=== PATIENT | female | born 1985 | race African-American/Black ===

== ENCOUNTER 2020-02-21 14:15 | Inpatient (IN) | payer OTHER ==
[2020-02-21 15:48] VITALS: BMI 37.5
[2020-02-21] MEDS ORDERED: AMPICILLIN - 2 GM in SODIUM CHLORIDE 100 ML IVPB ONE (16:00)
[2020-02-21 16:03] LABS: BASO % 0.3 % (0-2.0); EOS % 0.5 % (0-4.5); HEMATOCRIT 32.1 % (32.4-45.2); HEMOGLOBIN 10.3 GM/dL (10.7-15.3); LYMPH % 30.6 % (8-40); MCH 26.1 pg (25.7-33.7); MEAN CELL VOLUME 81.3 fl (80-96); MEAN PLT VOLUME 9.5 fl (7.5-11.1); MONO % 5.8 % (3.8-10.2); NEUT % 62.8 % (42.8-82.8); PLATELET COUNT 268 K/MM3 (134-434); RBC 3.95 M/mm3 (3.60-5.2); RDW 16.4 % (11.6-15.6); WHITE BLOOD COUNT 10.7 K/mm3 (4.0-10.0)
[2020-02-21] MEDS ORDERED: AMPICILLIN SODIUM 2 GM VIAL ONE (16:16)
[2020-02-21 16:30] LABS: BLOOD UREA NITROGEN 7.5 mg/dL (7-18); CALCIUM 8.9 mg/dL (8.5-10.1); CREATININE 0.6 mg/dL (0.55-1.3); POTASSIUM 4.6 mmol/L (3.5-5.1)
[2020-02-21] MEDS ORDERED: PCA PUMP NR ONE (16:39)
[2020-02-21] MEDS ORDERED: FENTANYL/BUPIVACAINE/NS/PF - PCEA - 50 ML DISP.SYRIN EP ONE ×3 (16:40→23:10)
[2020-02-21] MEDS ORDERED: BUPIVACAINE HCL/PF 0.25% (2.5MG/ML) 10 ML VIAL ONE ×2 (16:45→22:52)
[2020-02-21 16:59] LABS: INR 0.92 (0.83-1.09); PROTHROMBIN TIME (PATIENT) 10.9 SEC (9.7-13.0)
[2020-02-21] MEDS ORDERED: NALOXONE HCL 0.4 MG/ML VIAL IVPUSH PRN (17:09)
[2020-02-21] MEDS ORDERED: FENTANYL/BUPIVACAINE/NS/PF - PCEA - 50 ML DISP.SYRIN EP SCH (17:15)
[2020-02-21] MEDS ORDERED: ELECTROLYTE-148 SOLN 1,000 ML IV SCH (18:15)
--- NOTE | 2020-02-21 18:56 | PD.OB.PROG ---
Past Medical History - Primary Care Physician PCP:: Dario Gomez Documenting Provider Type: Laborist - Admission Chief Complaint: in labor History of Present Illness: ctx. Given epidural - Nursing Documentation Maternal Triage Index: Maternal Triage Index ( Priority 4, Non-urgent MFTI) Hemorrhage Risk Assessment: Risk Level Low Risk High Level Risk Factors for None Hemorrhage Medium Level Risk Factors for None of the above Hemorrhage Low Level Risk Factors for No previous uterine incis,Owusu Pregnaancy, Hemorrhage Four (4) or less previous,No known bleeding,No history of PPH Nursing Documentation Reviewed: Yes - Past Medical History CHISEL TRIMMER: Denies/None Cardio/Vascular: Denies/None Pulmonary: Denies/None Gastrointestinal: Denies/None Hepatobiliary: Denies/None Renal/: Denies/None ...: 7 ...Para: 1 ...Term: 1 ...: 0 ...Spon : 5 ...Induced : 0 ...Living Children: 1 ...Multiple Gestation: 0 ...LMP: 05/22/19 ... Weeks Gestation by Dates: 39.3 ...EDC by Dates: 02/25/20 Heme/Onc: Denies/None Infectious Disease: Denies/None Psych: Denies/None Musculoskeletal: Denies/None Rheumatology: Denies/None ENT: Denies/None Endocrine: Denies/None Dermatology: Denies/None - Past Surgical History Past Surgical History: Yes: None - Smoking History Smoking history: Never smoked Have you smoked in the past 12 months: No - Alcohol/Substance Use Hx Alcohol Use: No Review of Systems - Review of Systems Constitutional: reports: No Symptoms Eyes: reports: No Symptoms HENT: reports: No Symptoms Neck: reports: No Symptoms Cardiovascular: reports: No Symptoms Respiratory: reports: No Symptoms Gastrointestinal: reports: No Symptoms Genitourinary: reports: No Symptoms Breasts: reports: No Symptoms Reported Musculoskeletal: reports: No Symptoms Integumentary: reports: No Symptoms Neurological: reports: No Symptoms Endocrine: reports: No Symptoms Hematology/Lymphatic: reports: No Symptoms Psychiatric: reports: No Symptoms Physical Exam - Obstetrical Vital Signs: Vital Signs Temperature 98.4 F 02/21/20 18:00 Pulse Rate 103 H 02/21/20 18:00 Respiratory Rate 18 02/21/20 17:30 Blood Pressure 84/48 L 02/21/20 17:30 O2 Sat by Pulse Oximetry (%) 100 02/21/20 18:00 Constitutional: Yes: Well Nourished, No Distress, Calm Eyes: Yes: WNL, Conjunctiva Clear, EOM Intact HENT: Yes: WNL, Atraumatic, Normocephalic Neck: Yes: WNL, Supple, Trachea Midline Cardiovascular: Yes: WNL, Regular Rate and Rhythm Lungs: Clear to auscultation Breast(s): Yes: WNL - Abdominal Exam/OB Fundal Height: 38 Number of Fetuses: Single Presentation: Vertex Contractions: Yes Regularity: Regular Intensity: Moderate Monitor Mode: External Heart Rate (range): 135 Heart Rate Location: [facility] Category: I Accelerations: Uniform Decelerations: None - Vaginal Exam/OB Vaginal Exam Deferred: No Speculum Exam: No Amniotic Membrane Status: Bulging Nitrazine Test: Negative Presentation: Vertex/Position Station: -2 - Physical Exam Musculoskeletal: Yes: WNL, Muscle Weakness (AROM - clear.) - Labs Lab Results: CBC, BMP 02/21/20 15:20 02/21/20 15:20 Problem List - Problems (1) Active labor Code(s): [id number] - Assessment/Plan Active labor. AROM - clear. Expecting vaginal delivery.
--- NOTE | 2020-02-21 19:08 | HP ---
Past Medical History - Admission Chief Complaint: active labor History Source: Patient Limitations to Obtaining History: No Limitations - Past Medical History PULVERIZER: No: Alzheimer's, CVA, Dementia, Migraine, Multiple Sclerosis, Peripheral Neuropathy, Parkinson's, Seizure, Syncope, TIA, Vertigo, Other Cardiovascular: No: AFIB, Aneurysm, Aortic Insufficiency, Aortic Stenosis, CAD, CHF, Deep Vein Thrombosis, HTN, Hyperlipdemia, MS, Mitral Insufficiency, Mitral Stenosis, Murmur, Pulmonary Hypertension, Other Pulmonary: No: Asthma, Bronchitis, Cancer, COPD, O2 Dependent, Pneumonia, Previously Intubated, Pulmonary Embolus, Pulmonary Fibrosis, Sleep Apnea, Other Gastrointestinal: No: Ascites, Cancer, Constipation, Crohn's Disease, Diverticulitis, Diverticulosis, Esophageal Varices, Gastritis, GERD, GI Bleed, Hemorrhoids, Hiatal Hernia, Inflamatory Bowel Disease, Irritable Bowel Disease, Pancreatitis, Peptic Ulcer Disease, Ulcerative Colitis, Other Hepatobiliary: No: Cirrhosis, Cholelithiasis, Cholecystitis, Choledocholithiasi s, Hepatitis A, Hepatitis B, Hepatitis C, Other Renal/: No: Renal Failure, Renal Inusuff, BPH, Cancer, Hematuria, Hemodialysis, Neurogenic Bladder, Renal Calculi, UTI, Other Reproductive: No: Ectopic , Endometriosis, Fibroids, PID, Polycystic Ovary Syndrome, Postmenopausal, Other ...: 7 ...Para: 1 ...Term: 1 ...: 0 ...Spon : 5 ...Induced : 0 ...Living Children: 1 ...Multiple Gestation: 0 ...LMP: 05/22/19 ... Weeks Gestation by Dates: 39.3 ...EDC by Dates: 02/25/20 Heme/Onc: No: Anemia, B12 Deficiency, Bleeding Disorder, Cancer, Current Chemotherapy, Current Radiation Therapy, Hemochromatosis, Hypercoaguable State, Myeloproliferative Synd, Sickle Cell Disease, Sickle Cell Trait, Thrombocytopenia, Other Infectious Disease: No: AIDS, C-Diff, Herpes Zoster, HIV, MRSA, STD's, Tu berculosis, VREF, Other Psych: No: Addictions, Anxiety, Bipolar, Depression, Panic, Psychosis, Schizophrenia, Other Musculoskeletal: No: Bursitis, Chronic low back pain, Hemiparesis, Hemiplegia, Osteoarthritis, Paraplegia, Other Rheumatology: No: Fibromyalgia, Gout, Lupus, Rheumatoid Arthritis, Sarcoidosis, Vasculitis, Other ENT: No: Allergic Rhinitis, Sinusitis, Other Endocrine: No: Peter's Disease, [place]'s Disease, Diabetes Insipidus, Diabetes Mellitus, Hyperparathyroidism, Hyperthyroidism, Hypothyroidism, Osteopenia, SIADH, Other Dermatology: No: Basal Cell, Cellulitis, Eczema, Melanoma, Psoriasis, Squamous Cell, Other - Past Surgical History Past Surgical History: Yes: None Hx Myomectomy: No Hx Transabdominal Cerclage: No - Advance Directives Advance Directives: Yes: Living Will - Smoking History Smoking history: Never smoked Have you smoked in the past 12 months: No - Alcohol/Substance Use Hx Alcohol Use: No History of Substance Use: reports: None - Social History Usual Living Arrangement: Yes: With Significant Other Do you think of yourself as: Straight/Heterosexual ADL: Independent History of Recent Travel: No Home Medications - Allergies Allergies/Adverse Reactions: Allergies Allergy/AdvReac Type Severity Reaction Status Date / Time No Known Allergies Allergy Verified 02/21/20 14:45 - Home Medications Home Medications: Ambulatory Orders Pnv No.95/Ferrous Fum/Folic AC [ Formula] 1 each PO DAILY 02/21/20 Family Medical History Family History: Denies Review of Systems - Review of Systems Constitutional: reports: No Symptoms Eyes: reports: No Symptoms HENT: reports: No Symptoms Neck: reports: No Symptoms Cardiovascular: reports: No Symptoms Respiratory: reports: No Symptoms Gastrointestinal: reports: No Symptoms Genitourinary: reports: No Symptoms Breasts: reports: No Symptoms Reported Musculoskeletal: reports: No Symptoms Integumentary: reports: No Symptoms Neurological: reports: No Symptoms Endocrine: reports: No Symptoms Hematology/Lymphatic: reports: No Symptoms Psychiatric: reports: No Symptoms Physical Exam - Maternity Vital Signs: Vital Signs Temperature 98.4 F 02/21/20 18:00 Pulse Rate 103 H 02/21/20 18:00 Respiratory Rate 18 02/21/20 17:30 Blood Pressure 84/48 L 02/21/20 17:30 O2 Sat by Pulse Oximetry (%) 100 02/21/20 18:00 Constitutional: Yes: Well Nourished, No Distress, Calm Eyes: Yes: WNL, Conjunctiva Clear, EOM Intact HENT: Yes: WNL, Atraumatic, Normocephalic Neck: Yes: WNL, Supple, Trachea Midline Cardiovascular: Yes: WNL, Regular Rate and Rhythm Lungs: Clear to auscultation Breast(s): Yes: WNL - Abdominal Exam/OB Fundal Height: 40 Number of Fetuses: Single Presentation: Vertex Contractions: Yes Regularity: Irregular Intensity: Mod/Strong Monitor Mode: External Heart Rate Location: [facility] Category: I Accelerations: Uniform Decelerations: None - Vaginal Exam/OB Vaginal Bleeding: No Speculum Exam: No Dilatation (cm): 4 Effacement (%): 50 Amniotic Membrane Status: Intact Presentation: Vertex/Position Station: -2 - Physical Exam Musculoskeletal: Yes: WNL Extremities: Yes: WNL Edema: Yes Edema: LUE: 1+, RUE: 1+, LLE: 1+, RLE: 1+ Integumentary: Yes: WNL Deep Tendon Reflex Grade: Normal +2 ...Motor Strength: WNL Psychiatric: Yes: WNL, Alert, Oriented - Labs Lab Results: CBC, BMP 02/21/20 15:20 02/21/20 15:20 Hemorrhage Risk Assessment - Risk Factors Medium Risk Factors: Yes: None High Risk Factors: Yes: None Risk Score: 1 Risk Level: Medium Risk Assessment/Plan for , arom later and pitocin
--- NOTE | 2020-02-21 19:11 | PN ---
Progress Note (short form) - Note Progress Note: 7 pm, 5 cm, -2, 70, nst reactive, positive accell. for pitocin
[2020-02-21] MEDS ORDERED: OXYTOCIN 30 UNITS in 0.9% NS 30 UNIT/500 ML INFUS.BAG IVPB SCH (19:15)
[2020-02-21] MEDS ORDERED: OXYTOCIN 30 UNITS in 0.9% NS 30 UNIT/500 ML INFUS.BAG IVPB ONE (19:22)
[2020-02-21] MEDS ORDERED: AMPICILLIN SODIUM 1 GM VIAL ONE (20:15)
[2020-02-21] MEDS ORDERED: SODIUM CHLORIDE 100 ML IVPB ONE (20:15)
[2020-02-21] MEDS: AMPICILLIN - 1 GM in SODIUM CHLORIDE 100 ML IVPB SCH (20:17)
[2020-02-21] MEDS ORDERED: morphine SULFATE/PF 0.5 MG/ML (2cc Syringe - QUVA) ONE ×2 (23:57)
[2020-02-22] MEDS ORDERED: oxyCODONE HCL 5 MG TABLET PO PRN ×2 (01:24)
[2020-02-22] MEDS ORDERED: METHYLERGONOVINE MALEATE 0.2 MG/1 ML AMP IM PRN (01:24)
[2020-02-22] MEDS ORDERED: IBUPROFEN 800 MG/8 ML IJ IVPB PRN (01:24)
[2020-02-22] MEDS ORDERED: SENNOSIDES/DOCUSATE COMBO (SENNA PLUS) TABLET (UD) PO PRN (01:24)
--- NOTE | 2020-02-22 01:29 | PN ---
Progress Note (short form) - Note Progress Note: 11 pm, recurrrent late deccel, cervix still 5 to 6 cm, -2, thick 70 %, for c s , cat 2 nst, and f t progress,
--- NOTE | 2020-02-22 01:31 | OP ---
Operative Note - Note: Operative Date: 02/22/20 Pre-Operative Diagnosis: cat 2 nst, f t progress, Operation: priamry lt c s Findings: can x 1 , op Post-Operative Diagnosis: Same as Pre-op Surgeon: Dario Gomez Sales Support Rep: Robin Wiseman Anesthesiologist/BOARD SETTER: Emilio Peralta Anesthesia: Epidural Estimated Blood Loss (mls): 350 (endometriosis lesions, ) Operative Report Dictated: Yes
[2020-02-22] MEDS: AMPICILLIN - 1 GM in SODIUM CHLORIDE 100 ML IVPB SCH ×3 (02:25→10:41)
[2020-02-22] MEDS ORDERED: SODIUM CHLORIDE 100 ML IVPB ONE (03:30)
[2020-02-22] MEDS ORDERED: AMPICILLIN SODIUM 1 GM VIAL ONE (03:30)
[2020-02-22] MEDS: OXYTOCIN 20 UNITS in 0.9% NS 20 UNIT/1,000 ML INFUS.BAG IV SCH ×2 (04:03→15:03)
[2020-02-22] MEDS: PRENATAL VITAMINS W/ FOLIC ACID TABLET (FP) PO SCH (10:35)
[2020-02-22] MEDS: SIMETHICONE 80 MG TAB.CHEW (FP) PO PRN ×2 (10:38→15:04)
[2020-02-23] MEDS: ACETAMINOPHEN 325 MG TABLET (FP) PO PRN ×3 (00:54→15:57)
[2020-02-23] MEDS: IBUPROFEN 600 MG TABLET (FP) PO PRN ×3 (00:54→15:57)
[2020-02-23] MEDS: SIMETHICONE 80 MG TAB.CHEW (FP) PO PRN ×3 (00:55→15:57)
[2020-02-23] MEDS ORDERED: BISACODYL 10 MG SUPP.RECT RC PRN (01:25)
[2020-02-23] MEDS: OXYTOCIN 20 UNITS in 0.9% NS 20 UNIT/1,000 ML INFUS.BAG IV SCH (08:35)
[2020-02-23 09:13] LABS: BASO % 0.1 % (0-2.0); EOS % 0.2 % (0-4.5); HEMATOCRIT 30.6 % (32.4-45.2); HEMOGLOBIN 9.7 GM/dL (10.7-15.3); LYMPH % 21.9 % (8-40); MCH 25.9 pg (25.7-33.7); MCHC 31.8 g/dl (32.0-36.0); MEAN CELL VOLUME 81.4 fl (80-96); MEAN PLT VOLUME 9.6 fl (7.5-11.1); MONO % 6.8 % (3.8-10.2); PLATELET COUNT 251 K/MM3 (134-434); RBC 3.76 M/mm3 (3.60-5.2); RDW 17.1 % (11.6-15.6); WHITE BLOOD COUNT 14.5 K/mm3 (4.0-10.0)
--- NOTE | 2020-02-23 10:17 | PN ---
Progress Note, Physician Chief Complaint: s/p c section under epidural anesthesia post op day one History of Present Illness: duramorph for post op pain control - Current Medication List Current Medications: Active Medications Acetaminophen (Tylenol -) 650 mg PO Q4H PRN PRN Reason: FEVER Last Admin: 02/23/20 08:44 Dose: 650 mg Documented by: Bisacodyl (Dulcolax Suppository -) 10 mg RC PRN PRN PRN Reason: CONSTIPATION Fentanyl/Bupivacaine/Sodium Chlor (Bupivicaine 0.125%/Fentanyl 2mcg/Ml Pcea) 50 ml EP ASDIR PRABHA; Protocol Last Admin: 02/21/20 17:00 Dose: 50 ml Documented by: Parenteral Electrolytes (Plasma-Lyte 148 -) 1,000 mls @ 125 mls/hr IV ASDIR PRABHA Last Admin: 02/21/20 15:30 Dose: 125 mls/hr Documented by: Oxytocin/Sodium Chloride (Normal Saline+30 Units Oxytocin) 30 unit in 500 mls @ 1 mls/hr IVPB TITR [facility]; Protocol Last Titration: 02/21/20 22:10 Dose: 0.3 unit/hr, 5 mls/hr Documented by: Oxytocin/Sodium Chloride (Normal Saline+20 Units Oxytocin -) 20 unit in 1,000 mls @ 125 mls/hr IV ASDIR PRABHA Last Admin: 02/23/20 08:35 Dose: Not Given Documented by: Ibuprofen (Motrin -) 600 mg PO Q4H PRN PRN Reason: PAIN LEVEL 1 - 3 Last Admin: 02/23/20 08:44 Dose: 600 mg Documented by: Ibuprofen (Caldolor Injection -) 800 mg IVPB Q8H PRN PRN Reason: PAIN LEVEL 6-10 Last Admin: 02/22/20 15:03 Dose: 800 mg Documented by: Methylergonovine Maleate (Methergine Injection -) 0.2 mg IM Q4H PRN PRN Reason: Excessive Bleeding (L&D) Naloxone HCl (Narcan -) 0.4 mg IVPUSH PRN PRN PRN Reason: Sedation Oxycodone HCl (Roxicodone -) 5 mg PO Q4H PRN PRN Reason: PAIN LEVEL 4 - 6 Oxycodone HCl (Roxicodone -) 10 mg PO Q4H PRN PRN Reason: PAIN LEVEL 7 - 10 Multivit/Folic Acid/Iron ( Vitamins (Sjr) -) 1 tab PO DAILY PRABHA Last Admin: 02/22/20 10:35 Dose: Not Given Documented by: Senna/Docusate Sodium (Pericolace -) 2 tablet PO HS PRN PRN Reason: CONSTIPATION Last Admin: 02/23/20 00:55 Dose: 2 tablet Documented by: Simethicone (Mylicon -) 80 mg PO Q4H PRN PRN Reason: GAS Last Admin: 02/23/20 08:44 Dose: 80 mg Documented by: - Objective Vital Signs: Vital Signs Temperature 98.4 F 02/23/20 02:00 Pulse Rate 86 02/23/20 02:00 Respiratory Rate 20 02/23/20 02:00 Blood Pressure 121/76 02/23/20 02:00 O2 Sat by Pulse Oximetry (%) 98 02/22/20 14:00 Constitutional: Yes: Well Nourished Cardiovascular: Yes: WNL Respiratory: Yes: WNL Gastrointestinal: Yes: WNL Labs: CBC, BMP 02/23/20 07:58 02/21/20 15:20 INR, PTT INR 0.92 (0.83-1.09) 02/21/20 15:20 Assessment/Plan No adverse effect from anesthetic, dept of anesthesiology will sign off care at this time
[2020-02-23] MEDS: PRENATAL VITAMINS W/ FOLIC ACID TABLET (FP) PO SCH (10:22)
--- NOTE | 2020-02-23 14:37 | PN ---
Post Progress Note Post Day: 1 Type of Delivery: Primary C/S Vital Signs: Vital Signs Temperature 98.2 F 02/23/20 10:00 Pulse Rate 88 02/23/20 10:00 Respiratory Rate 18 02/23/20 10:00 Blood Pressure 128/86 02/23/20 10:00 O2 Sat by Pulse Oximetry (%) 98 02/22/20 14:00 Breast Exam: Yes: Soft Uterus: Yes: Fundus Firm, Fundus below umbilicus Incision: Yes: Dressing dry and intact, Sutures intact Abdomen/GI: Yes: Abdomen soft, Passing flatus, Tolerating PO Lochia: Yes: Serosa Lochia, amount: Small Extremities: Yes: Calves non-tender Perineum: Yes: Intact Activity: Ambulating (dc pt home tomorrow ) - Labs Labs: CBC WBC 14.5 K/mm3 (4.0-10.0) H 02/23/20 07:58 RBC 3.76 M/mm3 (3.60-5.2) 02/23/20 07:58 Hgb 9.7 GM/dL (10.7-15.3) L 02/23/20 07:58 Hct 30.6 % (32.4-45.2) L 02/23/20 07:58 MCV 81.4 fl (80-96) 02/23/20 07:58 MCH 25.9 pg (25.7-33.7) 02/23/20 07:58 MCHC 31.8 g/dl (32.0-36.0) L 02/23/20 07:58 RDW 17.1 % (11.6-15.6) H 02/23/20 07:58 Plt Count 251 K/MM3 (134-434) 02/23/20 07:58 MPV 9.6 fl (7.5-11.1) 02/23/20 07:58 Absolute Neuts (auto) 10.3 K/mm3 (1.5-8.0) H 02/23/20 07:58 Neutrophils % 71.0 % (42.8-82.8) 02/23/20 07:58 Lymphocytes % 21.9 % (8-40) D 02/23/20 07:58 Monocytes % 6.8 % (3.8-10.2) 02/23/20 07:58 Eosinophils % 0.2 % (0-4.5) 02/23/20 07:58 Basophils % 0.1 % (0-2.0) 02/23/20 07:58 Nucleated RBC % 0 % (0-0) 02/23/20 07:58
--- NOTE | 2020-02-23 14:39 | DS ---
Physical Exam-CURRICULUM COUNSELOR Vital Signs: Vital Signs Temperature 98.2 F 02/23/20 10:00 Pulse Rate 88 02/23/20 10:00 Respiratory Rate 18 02/23/20 10:00 Blood Pressure 128/86 02/23/20 10:00 O2 Sat by Pulse Oximetry (%) 98 02/22/20 14:00 Constitutional: Yes: Well Nourished, No Distress, Calm Eyes: Yes: WNL, Conjunctiva Clear, EOM Intact HENT: Yes: WNL, Atraumatic, Normocephalic Neck: Yes: WNL, Supple, Trachea Midline Cardiovascular: Yes: WNL, Regular Rate and Rhythm Respiratory: Yes: WNL, Regular, CTA Bilaterally Gastrointestinal: Yes: WNL, Normal Bowel Sounds, Soft ...Rectal Exam: Yes: WNL Renal/: Yes: WNL Pelvis: Yes: WNL External Genitalia: Yes: Normal Breast(s): Yes: WNL Musculoskeletal: Yes: WNL Extremities: Yes: WNL Integumentary: Yes: WNL Neurological: Yes: WNL, Alert, Oriented ...Motor Strength: WNL Psychiatric: Yes: WNL, Alert, Oriented Labs: CBC, BMP 02/23/20 07:58 02/21/20 15:20 Delivery - Delivery Section: Primary Type of Anesthesia: Epidural Episiotomy/Laceration: None EBL (cc): 350 Delivery, Single - Stages of Labor Date 1st Stage Initiatied: 02/21/20 Time 1st Stage Initiated: 10:00 Date of Delivery: 02/22/20 Time of Delivery: 00:23 Time Placenta Delivered: 00:24 - Condition of Gender Studies Professor/Associate Java Developer Present: Yes Gender: Female Weight: 3.572 kg Total Hours ROM (Hrs/Mins): 7/30 - 1 Minute Total Score: 5 5 Minutes Total Score: 9 - [place] Feeding Plan Initial Plan: Elected not to breastfeed exclusively throughout hospitalization Discharge Summary Problems reviewed: Yes Reason For Visit: LABOR ADMISSION Current Active Problems Active labor (Acute) Procedures: Principal: primary lt c s Other Procedures: none Hospital Course: uneventful Condition: Good - Instructions Diet, Activity, Other Instructions: Physical activity Resume your normal everyday activity as tolerated no heavy lifting or exercise until seen by your surgeon. You may walk unlimited bijal of and climb stairs. You may resume driving the car when you feel safe and comfortable behind the wheel. No sexual activity as instructed. Wound care If you have a bandage, leave it on, and keep dry for 48-72 hours. After that time discard the outer bandage. If they are tapes on the skin under the out of bandage leave them in place. They will peel off in the next 7 to 10 days. Do Not Peel them off. You may shower the day after surgery. If there are tapes present on the skin, you may shower over them. Diet There are no dietary restrictions. Eat healthy, high-fiber foods. Drink 6 to 8 glasses of liquid each day. This will assist in keeping your bowels are regular. Pain management You may take Tylenol or acetaminophen or Ibuprofen (for example, Motrin, Advil etc.) from my pain prescription medication is ordered should be taken as prescribed for moderate to severe pain. Call MD for any of the following: call dr silva for 2 weeks appointment Severe pain not relieved by medication Fever of 101 or higher Excessive bleeding or drainage on dressing Inability to urinate Disposition: HOME - Home Medications Comprehensive Discharge Medication List: Ambulatory Orders Pnv No.95/Ferrous Fum/Folic AC [ Formula] 1 each PO DAILY 02/21/20 Prescription Drug Monitoring Program (I-STOP) results: I-STOP reviewed and no issues identified
[2020-02-24] MEDS: ACETAMINOPHEN 325 MG TABLET (FP) PO PRN (05:12)
[2020-02-24] MEDS: IBUPROFEN 600 MG TABLET (FP) PO PRN (05:13)
[2020-02-24] MEDS: SIMETHICONE 80 MG TAB.CHEW (FP) PO PRN (05:14)
[2020-02-24 09:05] VITALS: BP 134/87; PULSE 101; TEMP 98
[2020-02-24] MEDS: PRENATAL VITAMINS W/ FOLIC ACID TABLET (FP) PO SCH (09:40)
--- NOTE | 2020-02-25 02:21 | OP ---
DATE OF OPERATION: 02/22/2020 PREOPERATIVE DIAGNOSIS: Nonreassuring heart rate tracing and failure to progress. POSTOPERATIVE DIAGNOSIS: Nonreassuring heart rate tracing and failure to descend; cord around the neck x1, in occipital posterior position. PROCEDURE: Primary low transverse section. SURGEON: Dario Gomez MD STICK ROLLER: SONIA Fulton ANESTHESIOLOGIST: Emilio Peralta MD ANESTHESIA: Epidural anesthesia. INDICATION: A 34-year-old female patient has had 3 miscarriages in the past. Patient has some severe migraines. 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 So, the patient has not had any followup in the past 10 years. So, with the above medical indications, the patient was admitted. The patient came in to the hospital in active labor. The patient was nini every 2 to 3 minutes. Patient was 4 cm and the patient was admitted. The patient proceeded to be 5 cm and patient received an epidural around 4 or 5 o'clock in the afternoon of February 20. Epidural was in; artificial rupture of membranes was done at around 5 o'clock in the afternoon and, until about 10 or 11 o'clock at night, so 6 hours went by. Patient still remained 5 cm to 6 cm and had deep variable decelerations, and late decelerations, too. heart rate tracing was category 2 and was timed for about a good 40 minutes. The patient's cervix was still 5 cm to 6 cm, so decision was made with the above medical indications. Patient does not want to have a traumatic labor and a long labor, as it would make her worry about her brain lesion, and does not want to aggravate her brain lesion. Patient also with category 2 tracing and failure to progress, patient was taken to OR for a primary low transverse section. PROCEDURE IN DETAIL: The patient also already epidural anesthesia, so she was taken to the OR and had it repeat topped off. The patient's abdomen and pelvis were prepped and draped in the usual sterile manner. A Pfannenstiel incision was made. Incision was made through skin and subcutaneous tissue until the fascia was nicked in the midline, and the fascia extended bilaterally. Intraperitoneal cavity was entered. Bladder flap was not created. Low transverse segment was entered. Baby was delivered from OP presentation. Baby was handed over to numerical control programmer after the umbilical cord was doubly clamped and cut. The cord around the neck x1 was tight. No blood gas was obtained and baby was handed to the numerical control programmer. The baby was crying when it came out, but the baby stopped crying, so Apgars were 5 at the first minute and 9 at about 2 to 3 minutes after the numerical control programmer detention attendant resuscitated baby in the OR, so baby was fine. Apgars were 5 and 9. Placenta was removed. Uterus closed in single layer, the first with interlocking Vicryl sutures. Good hemostasis. Both gutters were cleaned. Both ovaries and fallopian tubes appeared to have endometriosis lesions with slight adhesion in the posterior cul-de-sac of the uterus area. No complications and no bleeding. Draining clear urine. Blood loss about 350 mL. Peritoneum was closed. Fascia was closed. Skin was closed. Transferred to recovery room in stable condition. MD PETE MCKEE/[id number]
--- NOTE | 2020-02-28 09:20 | PATH ---
Surgical Pathology Report Patient Name: CALIN REYES Med. Rec. #: [id number] /Age/Gender: 1985 (Age: 34) / F Account: [id number] Location: [facility] OBS/RUBBER TIRE CURER Taken: 02/22/2020 Received: 02/22/2020 Reported: 02/28/2020 Physicians: Dario Gomez MD Specimen(s) Received PLACENTA Clinical History , 39 weeks 4 days, nonreassuring heart rate Final Diagnosis PLACENTA, SECTION: 504 G THIRD TRIMESTER PLACENTA WITH TRIVASCULAR UMBILICAL CORD AND UNREMARKABLE PLACENTAL MEMBRANES. Electronically Signed Aarti Loya M.D. Gross Description The specimen is received fresh labeled placenta and is a 504 gram, 20.0 x 16.5 x 2.3 cm. placenta with attached membranes and umbilical cord. The attached membranes are sosa, translucent with focal opacities and insert marginally. The umbilical cord measures 29 cm. in length and averages 1.3 cm. in diameter. The cord inserts centrally. No true knots or strictures are identified. Cut surface of the umbilical cord reveals 3 vessels. The surface is jones blue with moderate fibrin deposition and appropriate caliber vessels. The maternal surface is red-brown with focal defects. Sectioning reveals red-brown, spongy parenchyma. No lesions are identified. Manager Lpn sections are submitted in three cassettes as follows: 1- membrane rolls and umbilical cord; 2-3- full thickness sections of placenta. /02/26/2020 [facility]/02/26/2020
== END 2020-02-24 12:25 | disposition home or self-care (01) | DRG 540 ==
LOC: JLDR 14:15 → J3W 02-22 02:45
PROVIDERS: ADMIT Obstetrics & Gynecology; ATTEND Obstetrics & Gynecology
PROC: 10D00Z1 Extraction of Products of Conception, Low, Open Approach (ICD-10-PCS; principal; 2020-02-22)
DX: O76 Abnormality in fetal heart rate and rhythm complicating labor and delivery (principal); O62.2 Other uterine inertia; O69.81X0 Labor and delivery complicated by cord around neck, without compression, not applicable or unspecified; O77.0 Labor and delivery complicated by meconium in amniotic fluid; Z3A.39 39 weeks gestation of pregnancy; Z37.0 Single live birth
CPT/HCPCS: 36415; 80048; 85025; 85610; 85730; 86780; 86850; 86900; 86901; 87389; 88307-TC; U0003